=== PATIENT | male | born 1970 | race Caucasian/White ===

== ENCOUNTER → 2024-11-11 | Outpatient (CLI) | payer MEDICAID, SELFPAY ==
--- NOTE | 2024-11-11 13:02 | XR_ITS ---
Examination: Wrist, left 3 views Technique: Wrist AP, oblique, lateral 3 views Date and time of exam: November 11, 2024 1333 hours Comparison 08/05/2024 INDICATIONS: Acute comminuted impacted fracture distal radial metaphysis 08/05/2024 FINDINGS: Postop reduction internal fixation fracture distal radial metaphysis Partial healing with stable and satisfactory alignment Orthopedic hardware satisfactory position IMPRESSION: Partial healing fracture distal radius with stable and satisfactory alignment
== END | disposition home or self-care (01) ==
PROVIDERS: PCP Family Medicine
DX: S52.92XA Unspecified fracture of left forearm, initial encounter for closed fracture (principal); X58.XXXA Exposure to other specified factors, initial encounter
CPT/HCPCS: 73110